=== PATIENT | female | born 1940 | race Two or more races ===

== ENCOUNTER 2018-07-14 11:51 | Outpatient (CLI) | payer OTHER | END 2018-07-14 12:02 | disposition home or self-care (01) | LOC: RAD 11:51 | DX: J45.998 Other asthma (principal); I11.9 Hypertensive heart disease without heart failure; F41.1 Generalized anxiety disorder; E78.49 Other hyperlipidemia ==

== ENCOUNTER 2018-09-06 08:30 | Outpatient (CLI) | payer OTHER | END 2018-09-06 08:56 | disposition home or self-care (01) | LOC: TOM 08:30 | DX: K63.5 Polyp of colon (principal); Z12.11 Encounter for screening for malignant neoplasm of colon ==

== ENCOUNTER → 2024-05-04 07:53 | Outpatient (CLI) | payer OTHER | END | disposition home or self-care (01) | LOC: NUCLEAR 07:53 | PROVIDERS: ATTEND Internal Medicine Hematology & Oncology | DX: C50.411 Malignant neoplasm of upper-outer quadrant of right female breast (principal); C77.3 Secondary and unspecified malignant neoplasm of axilla and upper limb lymph nodes | CPT/HCPCS: 78816; A9552 ==